=== PATIENT | female | born 1965 | race Caucasian/White ===

== ENCOUNTER → 2017-06-17 | Outpatient (CLI) | payer OTHER ==
[~2017-06-17] VITALS: Ht 157.5 cm; Wt 84.0 kg
[~2017-06-17] MED LIST: ADDERALL30 MG PO; ASCORBIC ACID500 M3 PO; FINACEA 15% GEL50 GM TP; FLEXERIL5 MG PO; FLONASE16 G1 BOTH NARES; HYDROCODON-ACE1 EAC7 PO; INDERAL20 MG PO; NEURONTIN100 MG PO; PREMARIN0.3 MG PO; PROTONIX40 MG PO; RITALIN20 MG PO; SINGULAIR10 MG PO; SOOLANTRA30 GM TP; VITAMIN D31000 UNIT PO
[2017-06-17 11:55] VITALS: BP 121/76
== END | disposition home or self-care (01) ==
LOC: IVINF 06-15 10:00
DX: M85.80 Other specified disorders of bone density and structure, unspecified site (principal); T45.8X5A Adverse effect of other primarily systemic and hematological agents, initial encounter
CPT/HCPCS: 96365; J3489

== ENCOUNTER → 2017-10-07 | Outpatient (CLI) | payer OTHER | END | disposition home or self-care (01) | LOC: CDC 11:50 | DX: Z01.810 Encounter for preprocedural cardiovascular examination (principal); S80.01XD Contusion of right knee, subsequent encounter; M25.561 Pain in right knee; M17.11 Unilateral primary osteoarthritis, right knee | CPT/HCPCS: 93000 ==